=== PATIENT | male | born 1985 | race American Indian/Alaskan Native ===

== ENCOUNTER 2016-12-18 03:49 | Emergency (ER) | payer OTHER ==
[2016-12-18] MEDS ORDERED: NACL 0.9% 1000 ML 1,000 ML IV ONE (04:37)
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
[2016-12-18 04:55] LABS: Basophils % (Auto) 0.8 % (0.0-1.8); Eosinophils % (Auto) 1.9 % (0.0-4.3); Hematocrit 43.2 % (35.5-45.6); Hemoglobin 14.7 gm/dl (11.8-15.2); Mean Corpuscular HGB Conc 34 % (32-34); Mean Corpuscular Hemoglobin 32 pg (28-32); Mean Corpuscular Volume 93 fl (84-94); Platelet Count 228 K/mm3 (140-440); Red Blood Count 4.63 M/mm3 (3.65-5.03); Red Cell Distribution Width 13.6 % (13.2-15.2); White Blood Count 12.8 K/mm3 (4.5-11.0)
[2016-12-18 05:31] LABS: Anion Gap 19 mmol/L; Blood Urea Nitrogen 10 mg/dL (9-20); Calcium 8.8 mg/dL (8.4-10.2); Carbon Dioxide 23 mmol/L (22-30); Chloride 98.5 mmol/L (98-107); Glucose 104 mg/dL (75-100); Potassium 3.6 mmol/L (3.6-5.0); Sodium 137 mmol/L (137-145)
[2016-12-18] MEDS ORDERED: NACL 0.9% 500 ML IR ONE (06:17)
[2016-12-18] MEDS ORDERED: NACL 0.9% IR ONE (06:19)
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
[2016-12-18] MEDS ORDERED: XYLOCAINE 1% 20 mL ONE (07:06)
[2016-12-18] MEDS ORDERED: XYLOCAINE 1% 20 mL INFILTRATI ONE (07:10)
[2016-12-18] MEDS ORDERED: ANCEF/NS 1 GM/50 ML 1 GM/50 ML BAG IV ONE ×2 (07:16→07:42)
[2016-12-18] MEDS ORDERED: BOOSTRIX IM ONE (07:17)
[2016-12-18] MEDS ORDERED: TRIPLE ANTIBIOTIC TP ONE (07:25)
[2016-12-18] MEDS ORDERED: NORCO 5/325 PO ONE (08:19)
[2016-12-18] MEDS ORDERED: TENIVAC IM ONE (08:21)
[2016-12-18 08:50] VITALS: BP 126/78
[2016-12-19] MEDS ORDERED: BOOSTRIX IM ONE (08:45)
== END 2016-12-18 08:44 | disposition home or self-care (01) ==
LOC: ED 03:49
DX: S61.411A Laceration without foreign body of right hand, initial encounter (principal); I10 Essential (primary) hypertension; Z87.891 Personal history of nicotine dependence; W26.8XXA Contact with other sharp object(s), not elsewhere classified, initial encounter; Y93.89 Activity, other specified; Y99.8 Other external cause status; Y92.89 Other specified places as the place of occurrence of the external cause
CPT/HCPCS: 12004; 36415; 73130; 80048; 85025; 86850; 86900; 86901; 90715; 96361; 96365; 99284; G0480; J0690; J7030; 80320; A6250